=== PATIENT | female | born 1980 ===

== ENCOUNTER 2019-08-24 19:49 | Emergency (ER) | payer SELFPAY ==
[2019-08-24] MEDS ORDERED: Metoclopramide HCl 10 MG/2 ML VIAL ONE (20:06)
[2019-08-24] MEDS ORDERED: diphenhydrAMINE 50 MG/ML VIAL ONE (20:06)
[2019-08-24] MEDS ORDERED: Acetaminophen 500 MG TAB ONE (20:06)
== END 2019-08-24 22:06 | disposition home or self-care (01) ==
LOC: ERS 19:49
DX: G43.909 Migraine, unspecified, not intractable, without status migrainosus (principal)
CPT/HCPCS: 96365; 96375; J1200; J2765